=== PATIENT | female | born 1965 | race Caucasian/White ===

== ENCOUNTER 2024-03-29 20:29 | Inpatient (IN) | payer OTHER ==
[~2024-03-29] VITALS: Ht 157.5 cm; Wt 63.9 kg
[2024-03-29 21:10] LABS: BASOPHILS # (AUTO) 0.1 X10'3 (0-0.2); BASOPHILS % (AUTO) 0.8 % (0-1); EOSINOPHILS # (AUTO) 0.3 X10'3 (0-0.9); EOSINOPHILS % (AUTO) 4.4 % (0-6); HEMATOCRIT 40.7 % (35.0-45.0); HEMOGLOBIN 13.7 g/dl (12.0-16.0); LYMPHOCYTES # (AUTO) 0.9 X10'3 (1.1-4.8); LYMPHOCYTES % (AUTO) 13.7 % (21-51); MEAN CORPUSCULAR HGB CONC 33.7 g/dL (33.0-36.5); MEAN CORPUSCULAR VOLUME 91.9 FL (78-98); MEAN PLATELET VOLUME 7.3 FL (7.4-10.4); MONOCYTES # (AUTO) 0.8 X10'3 (0-0.9); MONOCYTES % (AUTO) 11.7 % (2-12); NEUTROPHILS # (AUTO) 4.7 X10'3 (1.8-7.7); NEUTROPHILS % (AUTO) 69.4 % (42-75); PLATELET COUNT 269 X10'3 (140-440); RED BLOOD COUNT 4.43 X10'6 (4.20-5.60); RED CELL DISTRIBUTION WIDTH 13.8 % (11.5-14.5); WHITE BLOOD COUNT 6.7 X10'3 (4.5-11.0)
[2024-03-29 21:38] LABS: ALBUMIN 3.8 G/DL (3.4-5.0); ANION GAP 9 (8-16); BLOOD UREA NITROGEN 14 MG/DL (7-18); BUN/CREATININE RATIO 17.9 (10.0-20.0); CALCIUM 8.9 MG/DL (8.5-10.1); CHLORIDE 100 MMOL/L (99-107); CREATININE 0.78 MG/DL (0.40-0.90); GLUCOSE 116 MG/DL (70-104); POTASSIUM 3.9 MMOL/L (3.5-5.1); PRO BRAIN NATRIURETIC PEPTIDE < 30 PG/ML (0-125); SODIUM 134 MMOL/L (135-145); TOTAL CARBON DIOXIDE 25.3 MMOL/L (24-32); eCRCL 61 ML/MIN; eGFR 75 ML/MIN
[2024-03-29] MEDS ORDERED: TRAL150S (22:06)
[2024-03-29] MEDS ORDERED: EST1T PO (22:07)
[2024-03-29] MEDS ORDERED: ZOLP5TAB8 PO (22:08)
[2024-03-29] MEDS ORDERED: LEVO88TA2 PO (22:08)
[2024-03-29] MEDS ORDERED: RUXO60CR (22:08)
[2024-03-29] MEDS ORDERED: CYAN100097 PO (22:09)
[2024-03-29] MEDS ORDERED: FOLATE PO (22:09)
[2024-03-29] MEDS ORDERED: MULT-1085 PO (22:09)
[2024-03-29] MEDS ORDERED: CHOL3000 PO (22:10)
[2024-03-29] MEDS ORDERED: OSC500T PO (22:10)
[2024-03-29] MEDS ORDERED: UBID100C16 PO (22:11)
[2024-03-30] VITALS (13 sets, daily range): BP systolic 104–149; BP diastolic 64–85; PULSE 73–108; RESP 12–22; TEMP 97.9–98.7; O2SAT 96–100
[2024-03-30] MEDS: aspirin 325mg tablet PO ONE (02:40)
[2024-03-30] MEDS ORDERED: magnesium 4gm in 100ml NS 100 ML IV PRN (03:50)
[2024-03-30] MEDS ORDERED: magnesium hydroxide 30ml (MOM) UD suspension PO PRN (03:50)
[2024-03-30] MEDS ORDERED: acetaminophen 325mg tablet PO PRN (03:50)
[2024-03-30] MEDS ORDERED: potassium Cl 40MEQ/1/2NS 520ml 520 ML IV PRN (03:50)
[2024-03-30] MEDS ORDERED: potassium Cl 20 mEq SR tablet PO PRN ×2 (03:50)
[2024-03-30] MEDS ORDERED: zolpidem 5mg tablet PO PRN (03:50)
[2024-03-30] MEDS ORDERED: ondansetron/PF 4mg/2ml inj IV PRN (03:50)
[2024-03-30] MEDS ORDERED: magnesium 2GM in 50ml NS 50 ML IV PRN (03:50)
[2024-03-30] MEDS ORDERED: mag hydrox/Alum hydrox/simeth 30ml oral suspension PO PRN (03:50)
[2024-03-30] MEDS ORDERED: morphine 2 MG/ML inj. syringe IV PRN (03:50)
[2024-03-30] MEDS ORDERED: magnesium Cl slow-release 64mg tablet PO PRN (03:50)
[2024-03-30] MEDS: levoTHYROXINE 88mcg tablet PO SCH (07:41)
[2024-03-30] MEDS: metoprolol succinate 25mg (24-HOUR) SR. Tablet PO SCH (07:41)
[2024-03-30] MEDS: docusate sod 100mg capsule PO SCH (07:42)
[2024-03-30] MEDS: enoxaparin 40mg/0.4ml syringe SUBCUT SCH (07:43)
[2024-03-30] MEDS: K and/or MAG REPLACEMENT MC SCH (08:00)
[2024-03-30] MEDS ORDERED: metoprolol tartrate 1mg/ml inj IV PRN (09:30)
[2024-03-30] MEDS ORDERED: nitroGLYCERIN 0.4mg SUBLingual tab SL PRN (09:30)
[2024-03-30] MEDS ORDERED: aminophylline 250mg/10ml inj. IV PRN (09:30)
[2024-03-30] MEDS: aspirin 81mg tab.chew PO SCH (10:54)
[2024-03-30 11:09] LABS: D-DIMER 0.47 MG/L FEU (0-0.50)
[2024-03-30 11:17] LABS: MAGNESIUM 2.4 MG/DL (1.5-2.4); PHOSPHORUS 4.1 MG/DL (2.3-4.5); POTASSIUM 3.7 MMOL/L (3.5-5.1)
[2024-03-30 11:27] LABS: FREE T4 (FREE THYROXINE) 1.21 NG/DL (0.73-1.40); THYROID STIMULATING HORMONE 1.24 ulU/ml (0.34-4.50)
[2024-03-30] MEDS: regadenoson 0.4mg/5ml syringe IV PRN (11:58)
[2024-03-31 02:00] VITALS: BP 134/74; PULSE 108; RESP 12; TEMP 99; O2SAT 96
[2024-03-31 05:00] VITALS: BP 124/69; PULSE 78; RESP 17; TEMP 97.7; O2SAT 94
[2024-03-31 08:00] VITALS: RESP 17; O2SAT 94
[2024-03-31 08:20] LABS: ALANINE AMINOTRANSFERASE 26 U/L (12-78); ALBUMIN 3.5 G/DL (3.4-5.0); ALBUMIN/GLOBULIN RATIO 0.9 (1.1-1.5); ALKALINE PHOSPHATASE 99 IU/L (46-116); ANION GAP 10 (8-16); ASPARTATE AMINO TRANSFERASE 18 U/L (10-37); BASOPHILS % (AUTO) 0.8 % (0-1); BILIRUBIN,TOTAL 0.2 MG/DL (0.1-1.0); BLOOD UREA NITROGEN 11 MG/DL (7-18); BUN/CREATININE RATIO 15.7 (10.0-20.0); CALCIUM 8.4 MG/DL (8.5-10.1); CHLORIDE 102 MMOL/L (99-107); CHOL/HDL RATIO 3.4 (0.00-4.99); CHOLESTEROL 217 MG/DL (0-200); EOSINOPHILS # (AUTO) 0.2 X10'3 (0-0.9); EOSINOPHILS % (AUTO) 4.6 % (0-6); GLUCOSE 92 MG/DL (70-104); HDL CHOLESTEROL 64 MG/DL (35-60); HEMATOCRIT 39.8 % (35.0-45.0); HEMOGLOBIN 13.5 g/dl (12.0-16.0); LDL CHOLESTEROL 136 MG/DL (50-100); LYMPHOCYTES # (AUTO) 1.3 X10'3 (1.1-4.8); LYMPHOCYTES % (AUTO) 28.1 % (21-51); MAGNESIUM 2.2 MG/DL (1.5-2.4); MEAN CORPUSCULAR HEMOGLOBIN 31.3 PG (27.0-31.0); MEAN CORPUSCULAR HGB CONC 33.8 g/dL (33.0-36.5); MEAN CORPUSCULAR VOLUME 92.4 FL (78-98); MEAN PLATELET VOLUME 7.5 FL (7.4-10.4); MONOCYTES # (AUTO) 0.7 X10'3 (0-0.9); MONOCYTES % (AUTO) 15.2 % (2-12); NEUTROPHILS # (AUTO) 2.4 X10'3 (1.8-7.7); NEUTROPHILS % (AUTO) 51.3 % (42-75); PLATELET COUNT 235 X10'3 (140-440); POTASSIUM 3.8 MMOL/L (3.5-5.1); RED CELL DISTRIBUTION WIDTH 13.8 % (11.5-14.5); SODIUM 136 MMOL/L (135-145); TOTAL CARBON DIOXIDE 24.2 MMOL/L (24-32); TOTAL PROTEIN 7.4 G/DL (6.4-8.2); TRIGLYCERIDES 95 MG/DL (20-135); WHITE BLOOD COUNT 4.6 X10'3 (4.5-11.0); eCRCL 68 ML/MIN; eGFR 85 ML/MIN
[2024-03-31] MEDS ORDERED: OMEP20CA15 PO (09:18)
== END 2024-03-31 10:17 | disposition home or self-care (01) | DRG 392 ==
LOC: ER 20:30 → ED HOLD 03-30 03:56 → ORTHO 4S 03-30 07:59
PROVIDERS: ADMIT Internal Medicine Critical Care Medicine; ATTEND Internal Medicine
PROC: 4A02XM4 Measurement of Cardiac Total Activity, External Approach (ICD-10-PCS; principal; 2024-03-30)
PROC: 3E033HZ Introduction of Radioactive Substance into Peripheral Vein, Percutaneous Approach (ICD-10-PCS; 2024-03-30)
DX: K21.9 Gastro-esophageal reflux disease without esophagitis (principal); F41.9 Anxiety disorder, unspecified; E03.9 Hypothyroidism, unspecified; F43.9 Reaction to severe stress, unspecified; Z88.0 Allergy status to penicillin
CPT/HCPCS: 36415; 71045; 78452; 80048; 80053; 80061; 83036; 83735; 83880; 84100; 84132; 84439; 84443; 84484; 85025; 85379; 87081; 93005; 93017; 93306; 99285; A9500; G0378; J1650; J2785